=== PATIENT | male | born 1960 | race Caucasian/White ===

== ENCOUNTER 2022-11-07 01:37 | Emergency (ER) | payer OTHER | END 2022-11-07 02:54 | disposition home or self-care (01) | LOC: JP.ED 01:37 | DX: R41.0 Disorientation, unspecified (principal); E86.0 Dehydration; I10 Essential (primary) hypertension; E78.5 Hyperlipidemia, unspecified; F17.210 Nicotine dependence, cigarettes, uncomplicated; R06.81 Apnea, not elsewhere classified; E66.9 Obesity, unspecified; Z88.0 Allergy status to penicillin; Z68.32 Body mass index [BMI] 32.0-32.9, adult | CPT/HCPCS: 93005; 93010; 99283 ==